=== PATIENT | male | born 1935 | race Caucasian/White ===

== ENCOUNTER 2019-05-20 15:26 | Inpatient (IN) | payer OTHER ==
[~2019-05-20] VITALS: Ht 180.3 cm; Wt 99.8 kg
[~2019-05-20 15:26] MED LIST: AMLODIPINE BESYL5 MG; ATIVAN1 MG; FAMOTIDINE20 MG; FOLIC ACID1 MG; SEROQUEL50 MG; SYNTHROID50 MCG; SYNTHROID75 MCG
[2019-05-20] MEDS ORDERED: NORVASC5 MG (16:17)
[2019-05-20] MEDS ORDERED: SYNTHROID112 MCG (16:17)
[2019-05-20] MEDS ORDERED: ALBUTEROL (16:18)
--- NOTE | 2019-05-20 16:18 | NUR ---
PTE SE RECIBE POR SHORTNESS OF BREATHE REFIERE PARAMEDICO Y FAMILIAR.
--- NOTE | 2019-05-20 17:51 | NUR ---
SE RECIBE PTE MASCULINO RAYA LLEGA EN AMBULANCIA ACOMPANDO DE FAMILIAR,ES COLOCADO EN AREA DE CRITICO ER POR ORDEN DE ,SE COLOCA EN CAMA #3,SE CONECTA A MONITOR CARDIASCO PATRIC Y OXIMETRIA DE PULSO CONTINUA,ES EVALUADO POR ,SE TERE MUESTRAS Y SE ENVIAN A LABORATORIO,SE COLOCAN 2 H/L PATENTE AMBOS LIBRES DE EDEMA Y ENROJECIMIENTO,SE COLOCA RACHEL SIGIUIENDO MEDIDAS ASEPTICAS,SE NOTIFICA A JOHNSON DE TERAPIA RES[PIRATORIA SOBRE TRATAMIENTO EL CUAL ES REALIZADO Y LE ES COLOCADO V/M 50%, SE REALIZA SUCCION A PTE YA QUE RAYA NO ESPECTORA,SE REALIZA X RAY,SE NOITIFICA A QUE PTE PRESENTA HIPOTEMSION,RAYA INDICA ESPERAR LABORATORIOS PARA REALIZAR NUEVAS ORDENES,SE MANTIENE A PTE EN SUAREZ;ANCIA PATRIC POR CAMBIOS.
--- NOTE | 2019-05-20 19:29 | NUR ---
LE COLOCADO A PTE .9NSS@20ML/HR,SE NOTIFICA A PTE CON SATURACION DE OXIGENO LA CULA AUMENTA HASTA 93% Y RAYA DESCONTINUA BPAP Y SE CONTINUA V/M 50%, SE MANTIENE PTE EN VIGILANCIA PATRIC POR CAMBIOS.PTE PRESENTA EDEMA EN AMBAS EXTREMIDADES INFERIORES,SE ORIENTA A FAMILIAR SOBRE CAMBIOS DE POSICION CADA 2 HRS LAS CUALES SE COMIENZAN COLOCANDO ALMOHADAS,SE VIGILA PATRIC.
[2019-05-21] MEDS ORDERED: QUETIAPINE FUM200 MG PO (09:08)
[2019-05-21] MEDS ORDERED: ATIVAN1 MG PO (09:08)
[2019-05-21] MEDS ORDERED: LOTRISONE CREAM45 GM TOP (09:09)
[2019-05-21] MEDS ORDERED: SILVER SULFADIA50 GM TOP (09:09)
[2019-05-21] MEDS ORDERED: ALBUTEROL SULFAT2 MG (09:10)
[2019-05-21] MEDS ORDERED: ALBUTEROL2.5 MG/3 M (09:13)
== END 2019-05-22 19:41 | disposition expired | DRG 208 ==
LOC: ER 15:26 → SURH 21:56 → MEDJ 21:56
PROVIDERS: ADMIT Internal Medicine
PROC: B246ZZZ Ultrasonography of Right and Left Heart (ICD-10-PCS; 2019-05-20)
PROC: 3E0F7GC Introduction of Other Therapeutic Substance into Respiratory Tract, Via Natural or Artificial Opening (ICD-10-PCS; 2019-05-20)
PROC: 4A033R1 Measurement of Arterial Saturation, Peripheral, Percutaneous Approach (ICD-10-PCS; 2019-05-20)
PROC: 5A1945Z Respiratory Ventilation, 24-96 Consecutive Hours (ICD-10-PCS; principal; 2019-05-21)
PROC: 0BH17EZ Insertion of Endotracheal Airway into Trachea, Via Natural or Artificial Opening (ICD-10-PCS; 2019-05-21)
PROC: 4A12X4Z Monitoring of Cardiac Electrical Activity, External Approach (ICD-10-PCS; 2019-05-21)
DX: J15.0 Pneumonia due to Klebsiella pneumoniae (principal); A41.89 Other specified sepsis; J96.01 Acute respiratory failure with hypoxia; I47.1 Supraventricular tachycardia; J15.1 Pneumonia due to Pseudomonas; J15.8 Pneumonia due to other specified bacteria; J15.5 Pneumonia due to Escherichia coli; G20 Parkinson's disease; I50.89 Other heart failure; Z74.01 Bed confinement status; I11.0 Hypertensive heart disease with heart failure